=== PATIENT | female | born 1995 | race Caucasian/White ===

== ENCOUNTER 2018-01-23 22:51 | Emergency (ER) | payer OTHER ==
[2018-01-23 23:24] VITALS: BP 141/94
[2018-01-24] MEDS ORDERED: NORMAL SALINE 1000 ML 1,000 ML IV ONE
[2018-01-24] MEDS ORDERED: ONDANSETRON HCL INJ/PF 4 MG/2 ML SDV IV ONE
[2018-01-24] MEDS ORDERED: HYDROMORPHONE HCL INJ/PF 2 MG/ML AMPULE IV ONE
--- NOTE | 2018-01-24 00:03 | ER Document Report ---
ED General - General Mode of Arrival: Wheelchair Information source: Patient TRAVEL OUTSIDE OF THE [place] IN LAST 30 DAYS: No - HPI Onset: Other - 3 weeks Onset/Duration: Worse Quality of pain: Sharp Pain Level: 5 Associated symptoms: Nausea, Vomiting. denies: Nonproductive cough, Productive cough, Fever, Shortness of breath Exacerbated by: Movement Relieved by: Denies Similar symptoms previously: No Recently seen / treated by doctor: Yes <DELLA MCCLURE - Last Filed: 01/24/18 02:14> <DIAMOND BALDERRAMA - Last Filed: 01/24/18 03:36> - General Chief Complaint: Low Back Pain Stated Complaint: SEVERE LOWER BACK PAIN Time Seen by Provider: 01/23/18 23:32 Notes: Patient presents complaining of low back pain since having a hemorrhoidectomy performed on 01/04/2018 at the . Patient states she had spinal anesthesia. Patient states that since the surgery her blood pressure has been elevated as well running around 150/100. Patient did follow-up with the emergency department 5 days later due to her low back pain. Patient states she was advised that her symptoms were likely due to positioning during the surgery and they treated her symptomatically. Patient reports seeing her surgeon 1 week ago and he gave her a referral to pain management. Patient saw pain management 6 days ago and received trigger point injections. Patient states the injections modestly improved her back pain although her pain worsened this evening which prompted her visit here. Patient states that she also received a referral to physical therapy and saw them 2 days ago. Patient states the pain persisted and today she went to her [facility] and the performed thyroid testing to evaluate her hypertension. Patient reports nausea and vomiting today 2 episodes. Patient's had decreased appetite for the past 3-4 days. Patient denies any leg pain or weakness. Patient denies any problems with bowel movements. Patient denies any blood in stool. Patient denies any headache pain or fever. (DELLA MCCLURE) Past Medical History - General Information source: Patient - Social History Smoking Status: Never Smoker Frequency of alcohol use: None Drug Abuse: None Occupation: Active duty Family History: Reviewed & Not Pertinent Patient has suicidal ideation: No Patient has homicidal ideation: No - Medical History Medical History: Negative Renal/ Medical History: Denies: Hx Peritoneal Dialysis Past Surgical History: Reports: Other - Adenoidectomy <DELLA MCCLURE - Last Filed: 01/24/18 02:14> Review of Systems - Review of Systems Constitutional: No symptoms reported. denies: Fever, Recent illness EENT: No symptoms reported Cardiovascular: Lightheaded. denies: Chest pain Respiratory: No symptoms reported. denies: Cough, Short of breath Gastrointestinal: Abdominal pain, Nausea, Vomiting, Poor appetite. denies: Diarrhea, Constipation, Blood streaked bowels Genitourinary: No symptoms reported. denies: Dysuria, Flank pain Female Genitourinary: No symptoms reported. denies: , Vaginal discharge , Vaginal bleeding Musculoskeletal: Back pain Skin: No symptoms reported Hematologic/Lymphatic: No symptoms reported Neurological/Psychological: No symptoms reported. denies: Weakness, Headaches, Numbness, Tingling <DELLA MCCLURE - Last Filed: 01/24/18 02:14> Physical Exam - General General appearance: Alert In distress: Mild - HEENT Head: Normocephalic, Atraumatic Eyes: Normal Conjunctiva: Normal Nasal: Normal Mouth/Lips: Normal Mucous membranes: Normal Neck: Normal, Supple. No: Lymphadenopathy - Respiratory Respiratory status: No respiratory distress Chest status: Nontender Breath sounds: Normal. No: Rales, Rhonchi, Stridor, Wheezing Chest palpation: Normal - Cardiovascular Rhythm: Regular Heart sounds: S1 appreciated, S2 appreciated Murmur: No - Abdominal Inspection: Normal Distension: No distension Bowel sounds: Normal Tenderness: Tender - Generalized, Guarding Organomegaly: No organomegaly - Back Back: Tender - Lumbar paraspinal tenderness, Vertebra tenderness - Lumbar. No: CVA tenderness - Extremities General upper extremity: Normal inspection, Normal strength General lower extremity: Normal inspection, Nontender, Normal strength - Neurological Neuro grossly intact: Yes Cognition: Normal [place] Coma Scale Eye Opening: Spontaneous [place] Coma Scale Verbal: Oriented [place] Coma Scale Motor: Obeys Commands [place] Coma Scale Total: 15 - Psychological Associated symptoms: Normal affect, Normal mood - Skin Skin Temperature: Warm Skin Moisture: Dry Skin Color: Normal <DELLA MCCLURE - Last Filed: 01/24/18 02:14> - Vital signs Vitals: Temp Pulse Resp BP Pulse Ox 98.7 F 75 20 141/94 H 100 01/23/18 23:18 01/23/18 23:18 01/23/18 23:18 01/23/18 23:18 01/23/18 23:18 Course - Laboratory Result Diagrams: 01/24/18 00:24 01/24/18 00:24 <DELLA MCCLURE - Last Filed: 01/24/18 02:14> - Laboratory Result Diagrams: 01/24/18 00:24 01/24/18 00:24 <DIAMOND BALDERRAMA - Last Filed: 01/24/18 03:36> - Re-evaluation Re-evalutation: 01/24/18 00:[address] Hernandez regarding patient diagnostic evaluation. Recommends CBC , Chem-12, ESR, pelvic examination in addition to CT abdomen and pelvis with IV and oral contrast. 01/24/18 02:14 Bedside report and handout given to DELLA Lam) - Vital Signs Vital signs: Temp Pulse Resp BP Pulse Ox 98.7 F 75 16 141/94 H 98 01/23/18 23:18 01/23/18 23:18 01/24/18 03:10 01/23/18 23:18 01/24/18 03:10 - Laboratory Laboratory results interpreted by me: 01/24/18 01/24/18 00:24 01:22 Sodium 147.6 H Calcium 10.3 H Total Protein 8.5 H Urine Blood MODERATE H Discharge <DELLA MCCLURE - Last Filed: 01/24/18 02:14> <DIAMOND BALDERRAMA - Last Filed: 01/24/18 03:36> - Discharge Clinical Impression: Muscle spasm Lower back pain Qualifiers: Chronicity: unspecified Back pain laterality: bilateral Sciatica presence: without sciatica Qualified Code(s): M54.5 - Low back pain Condition: Stable Disposition: HOME, SELF-CARE Additional Instructions: The exact cause of your pain is uncertain at this time. The CAT scan and laboratory workup did not show any concerning abnormalities. Recommendation is to take the diazepam as prescribed for muscle spasms, do not drive, drink alcohol, or take sedating medication while taking this. Follow-up closely with both pain management and neurosurgeon for additional evaluation including possible MRI. Return for any concerning symptoms including numbness, loss of bowel or bladder control, fever, or any other concerning or worsening symptoms. Prescriptions: Diazepam [Valium 5 mg Tablet] 1 - 2 tab PO TID PRN #20 tablet PRN Reason:
[2018-01-24 00:37] LABS: ABSOLUTE EOSINOPHILS # (AUTO) 0.1 10^3/uL (0.0-0.6); ABSOLUTE LYMPHOCYTES (AUTO) 3.3 10^3/uL (0.5-4.7); ABSOLUTE MONOCYTES (AUTO) 0.4 10^3/uL (0.1-1.4); ABSOLUTE NEUT (AUTO) 4.6 10^3/uL (1.7-8.2); BASOPHILS % (AUTO) 0.4 % (0-2); EOSINOPHILS % (AUTO) 0.8 % (0-6); HEMATOCRIT 39.8 % (36.0-47.0); HEMOGLOBIN 14.1 g/dL (12.0-15.5); LYMPHOCYTES % (AUTO) 39.5 % (13-45); MEAN CORPUSCULAR HEMOGLOBIN 29.7 pg (27.0-33.4); MEAN CORPUSCULAR HGB CONC 35.4 g/dL (32.0-36.0); MEAN CORPUSCULAR VOLUME 84 fl (80-97); MONOCYTES % (AUTO) 5.1 % (3-13); PLATELET COUNT 192 10^3/uL (150-450); RED BLOOD COUNT 4.74 10^6/uL (3.72-5.28); RED CELL DISTRIBUTION WIDTH 11.9 % (11.5-14.0); SEGMENTED NEUTROPHILS % (AUTO) 54.2 % (42-78); TOTAL CELLS COUNTED % (AUTO) 100 %; WHITE BLOOD COUNT 8.4 10^3/uL (4.0-10.5)
[2018-01-24 00:47] LABS: ALANINE AMINOTRANSFERASE 42 U/L (9-52); ALKALINE PHOSPHATASE 45 U/L (38-126); ANION GAP 19 (5-19); ASPARTATE AMINO TRANSFERASE 24 U/L (14-36); BILIRUBIN,DIRECT 0.2 mg/dL (0.0-0.4); BILIRUBIN,TOTAL 0.6 mg/dL (0.2-1.3); BLOOD UREA NITROGEN 14 mg/dL (7-20); CALCIUM 10.3 mg/dL (8.4-10.2); CARBON DIOXIDE 24 mmol/L (22-30); CHLORIDE 105 mmol/L (98-107); GLUCOSE 99 mg/dL (75-110); LIPASE 299.3 U/L (23-300); POTASSIUM 3.6 mmol/L (3.6-5.0); SODIUM 147.6 mmol/L (137-145); TOTAL PROTEIN 8.5 g/dL (6.3-8.2)
[2018-01-24 01:11] LABS: BACTERIA (WET MOUNT) 3+ BACTERIA SEEN; RBCS (WET MOUNT) NO RBCS SEEN; T.VAGINALIS (WET MOUNT) NO TRICHOMONAS SEEN; WBCS (WET MOUNT) 2+ WBCS SEEN; YEAST (WET MOUNT) NO YEAST SEEN
[2018-01-24 01:16] LABS: ERYTHROCYTE SEDIMENTATION RATE 15 mm/hr (0-20)
[2018-01-24 01:37] LABS: APPEARANCE,URINE CLEAR; BILIRUBIN,URINE NEGATIVE (NEGATIVE); COLOR,URINE STRAW; GLUCOSE, URINE NEGATIVE (NEGATIVE); KETONES,URINE NEGATIVE (NEGATIVE); LEUKOCYTE ESTERASE,URINE NEGATIVE (NEGATIVE); NITRITE,URINE NEGATIVE (NEGATIVE); PROTEIN,URINE NEGATIVE (NEGATIVE); URINE SPECIFIC GRAVITY 1.003; UROBILINOGEN,URINE NEGATIVE mg/dL (<2.0)
[2018-01-24] MEDS ORDERED: DIAZEPAM INJ 10 MG/2 ML DISP.SYRIN IV ONE (02:15)
[2018-01-24 02:28] LABS: CHLAM PCR NOT DETECTED (NOT DETECT); GON PCR NOT DETECTED (NOT DETECT)
[2018-01-24] MEDS ORDERED: HYDROCODONE/ACETAMINOPHEN 5-325 MG (6 TAB/ER DISP) ONE (04:20)
[2018-01-24] MEDS ORDERED: HYDROCODONE/ACETAMINOPHEN 5-325 MG (6 TAB/ER DISP) PO PRN (04:50)
--- NOTE | 2018-01-24 06:01 | RADIOLOGY REPORT (SQ) ---
EXAM DESCRIPTION: CT Abdomen Pelvis With Iv Contrast CLINICAL HISTORY: 22 years Female, abd/low back pain, hx hemorroid surgery COMPARISON: None. TECHNIQUE: IV and oral contrast. Coronal and sagittal reformat. This exam was performed according to our departmental dose-optimization program, which includes automated exposure control, adjustment of the mA and/or kV according to patient size and/or use of iterative reconstruction technique. FINDINGS: Partially duplicated left renal collecting system. Likely benign small left renal cyst. No evidence of appendicitis; appendix not definitively discerned. Inferior thorax, liver, gallbladder, pancreas, spleen, adrenals, renal system, gastrointestinal tract, pelvic organs, lymphatics, vasculature, and musculoskeleton appear otherwise unremarkable. IMPRESSION: No acute findings.
== END 2018-01-24 04:21 | disposition home or self-care (01) ==
LOC: ER 22:51
DX: M54.5 Low back pain (principal); R10.9 Unspecified abdominal pain; M62.838 Other muscle spasm; R11.2 Nausea with vomiting, unspecified; R63.0 Anorexia; R42 Dizziness and giddiness; Z98.890 Other specified postprocedural states; R10.817 Generalized abdominal tenderness
CPT/HCPCS: 99284; 96361; 96374; 96375; 36415; 87210; 83690; 84703; 85025; 85652; 80053; 81001; 87491; 87591; 74177; J3360; J1170; J2405; J7030